=== PATIENT | female | born 1960 | race Caucasian/White ===

== ENCOUNTER 2016-12-26 09:36 | Day surgery (SDC) | payer BC ==
[~2016-12-26 09:36] MED LIST: Lactated Ringers 1,000 ML IV SCH; Sodium Chloride 0.9% 10 ML Syringe FLUSH PRN
[2016-12-26] MEDS ORDERED: Midazolam 1 MG/ML 2 ML SDV ONE ×2 (10:55→11:05)
[2016-12-26] MEDS ORDERED: Propofol 200 MG/20 ML SDV ONE ×3 (10:55→11:43)
--- NOTE | 2016-12-26 11:37 | PCM.OPNOTE ---
- General Post-Op/Procedure Note Date of Surgery/Procedure: 12/26/16 Operative Procedure(s): Colonoscopy with polypectomy Findings: Sig colon polyp Pre Op Diagnosis: Screening Post-Op Diagnosis: Same Anesthesia Technique: MAC Primary Surgeon: Yoan Mosquera Anesthesia Provider: Dominique Alonzo Pathology: polyp EBL in mLs: 0 Complications: None Condition: Good Free Text/Narrative:: Intake & Output 12/25/16 12/26/16 12/26/16 22:59 06:59 14:59 Intake Total 600 Balance 600
[2016-12-26 11:59] VITALS: BP 129/68
--- NOTE | 2016-12-26 14:54 | OR ---
Date of Procedure: 12/26/2016 PREOPERATIVE DIAGNOSIS: Colon screening. POSTOPERATIVE DIAGNOSIS: Sigmoid colon polyp. PROCEDURE: Colonoscopy with polypectomy. ANESTHESIA: IV sedation. PROCEDURE IN DETAIL: The patient was brought to the procedure room, where she was placed on her left side and IV sedation administered. Digital rectal exam was performed which was normal. Colonoscope was inserted and advanced to the level of the cecum without difficulty. Cecal position was confirmed by identifying the appendiceal lumen and ileocecal valve. Prep was good and surfaces were well visualized. Upon withdrawing the scope; the ascending, transverse, and descending colon were normal in appearance. Sigmoid colon had a 6 mm pedunculated polyp, located 15 cm from the anal verge that was removed with a cautery snare and retrieved in the polyp trap. This was sent for pathology review. Rectum was normal and retroflexion was normal. Air was removed and the scope withdrawn. Patient tolerated the procedure well and returned to recovery in stable condition. The patient will follow up with Nargis Rivera next week to review pathology report. If the polyp is adenomatous, she should undergo a repeat colonoscopy again in 3 years. If the polyp is hyperplastic, she could wait 10 years until her next colonoscopy. SUNNY ARIAS MD /[id number]
== END 2016-12-26 13:09 | disposition home or self-care (01) ==
LOC: LL.SDS 09:36
PROVIDERS: ATTEND Surgery
DX: Z12.11 Encounter for screening for malignant neoplasm of colon (principal); K63.5 Polyp of colon; I10 Essential (primary) hypertension; E78.5 Hyperlipidemia, unspecified; Z90.710 Acquired absence of both cervix and uterus; Z98.51 Tubal ligation status; Z98.84 Bariatric surgery status; Z90.49 Acquired absence of other specified parts of digestive tract; Z79.899 Other long term (current) drug therapy
CPT/HCPCS: 45385; J2250; J2704; J7120